=== PATIENT | female | born 1960 | race Caucasian/White ===

== ENCOUNTER 2016-09-16 10:30 | Inpatient (IN) | payer OTHER ==
[~2016-09-16] VITALS: Ht 157.5 cm; Wt 149.7 kg
[~2016-09-16 10:30] MED LIST: ALPRAZOLAM0.5 M3 PO; AMOXICILLIN500 M1 PO; ASPIR 8181 MG PO; ASPIRIN81 M4 PO; CATAPRES0.3 M1 PO; CEFDINIR300 MG PO; CLONIDINE HYDR0.3 MG PO; FISH OIL 1,2001 EAC2 PO; FISH OIL CONC1000 MG PO; FUROSEMIDE20 MG PO; LOSARTAN POTAS100 M1 PO; MEROPENEM1 GM IV; METAMUCIL CLEAR1 POW PO; METAMUCIL FIBE3.4 GM PO; MULTIPLE VITAM1 EAC2 PO; MULTIVITAMIN1 TA1 PO; PERCOCET 325 MG1 TA2 PO; POTASSIUM CITR10 ME1 PO; RED YEAST RICE600 M1 PO; VENTOLIN1 PUF INH; VERAPAMIL HCL360 M1 PO; VITAMIN C1000 M1 PO; VITAMIN C1000 M4 PO; VITAMIN D1000 IU PO; VITAMIN D31000 UNI2 PO; XANAX0.5 M1 PO
--- NOTE | 2016-09-16 10:34 | NUR ---
PT TO ED C/O RLE CELLULITIS. PT SAW JAYSON AUTUMN ARREOLAN AND WAS GIVEN PO ABX, PT HAS BEEN TAKING SINCE TUESDAY NIGHT. STATES PAIN IS WORSE AND THE CELLULITS IS NOT GETTING BETTER. TEMP 99.1 IN TRIAGE.
--- NOTE | 2016-09-16 11:37 | ED GENERAL ADULT ---
History of Present Illness General Chief Complaint: Lower Extremity Problems Stated Complaint: SENT BY PMD FOR RT LEG CELLULITIS Source: patient Exam Limitations: no limitations Vital Signs & Intake/Output Vital Signs & Intake/Output Vital Signs Date Time Temp Pulse Resp B/P B/P Pulse O2 O2 Flow FiO2 Mean Ox Delivery Rate 09/16 1410 98 Room Air 09/16 1241 97.1 95 18 146/65 99 09/16 1034 99.1 116 20 157/89 98 Room Air Allergies Coded Allergies: latex (Mild, RASH 09/16/16) WANDA Inhibitors (Intermediate, COUGH 09/16/16) Reconcile Medications Albuterol Sulfate (Proair Hfa) 90 MCG HFA.AER.AD 2 PUF INH Q4 PRN WHEEZING ( Reported) Alprazolam (Xanax) 0.5 MG TABLET 1 TAB PO DAILY NEEDED PRN ANXIETY ( Reported) Ascorbic Acid (Vitamin C) 1,000 MG TABLET 1 TAB PO DAILY VITAMIN SUPPORT ( Reported) Aspirin (Aspirin*) 81 MG TAB.CHEW 1 TAB PO DAILY HEART HEALTH (Reported) Cephalexin 500 MG CAPSULE 1 CAP PO Q6 ANTIBIOTIC, INFECTION (Reported) Cholecalciferol (Vitamin D3) 1,000 UNIT TABLET 1 TAB PO DAILY BONE STRENGTH ( Reported) Clonidine HCl (Catapres) 0.3 MG TABLET 1 TAB PO QPM HBP (Reported) Furosemide (Lasix) 20 MG TABLET 1 TAB PO DAILY WATER RETENTION (Reported) Losartan Potassium 100 MG TABLET 1 TAB PO DAILY BP (Reported) Multivitamin (Multiple Vitamins) 1 EACH TABLET 1 TAB PO DAILY VITAMIN SUPPORT (Reported) [place]-3S/Dha/Epa/Fish Oil (Fish Oil 1,200 MG Softgel) 360-1,200MG CAPSULE 2 CAP PO DAILY CHOLESTEROL (Reported) Potassium Citrate (Potassium Citrate ER) 10 MEQ (1,080 MG) TABLET.ER 1 TAB PO DAILY URIC ACID STONES (Reported) Psyllium Hydrophy Sugar Free (Metamucil Fiber Singles Packet) 3.4 GRAM POWD.PACK 1 TSP PO DAILY SUBTOTAL COLECTOMY (Reported) Red Yeast Rice 600 MG CAPSULE 2 CAP PO DAILY SUPPLEMENT (Reported) Sulfamethoxazole/Trimethoprim (Sulfamethoxazole-Tmp Ds Tablet) 800 MG-160 MG TABLET 1 TAB PO BID ANTIBIOTIC, INFECTION (Reported) Tramadol HCl 50 MG TABLET 1 TAB PO TIDPRN PRN PAIN (Reported) Verapamil HCl 360 MG CAP24H.PEL 1 CAP PO 2200 BP (Reported) Triage Note: PT TO ED C/O RLE CELLULITIS. PT SAW JAYSON LEYVA APRN AND WAS GIVEN PO ABX, PT HAS BEEN TAKING SINCE TUESDAY NIGHT. STATES PAIN IS WORSE AND THE CELLULITS IS NOT GETTING BETTER. TEMP 99.1 IN TRIAGE. Triage Nurses Notes Reviewed? yes HPI: Patient sent in for admission for cellulitis to her right lower extremity. Patient was seen in the office on Tuesday and was started on Keflex and Bactrim. 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 Patient is having low-grade fevers, increasing pain in spreading of the erythema. Patient was seen again today and then was sent in for admission. Patient denies any nausea or vomiting. Patient describes a burning throbbing pain in the area where there is redness. Patient states that there is no pain outside of the redness. Patient states the pain is worsened when anybody presses on the reddened area. She rates the pain at 5 out of 10. Past History Travel History Traveled to [place] past 21 day No Medical History Any Pertinent Medical History? see below for history Cardiovascular: hypertension Cancer(s): cervical cancer History of MRSA: No History of VRE: No History of CDIFF: No Influenza Vaccine: 12/07/13 Surgical History Surgical History: non-contributory Psychosocial History Who do you live with Patient/Self Services at Home None What is your primary language Icelandic Tobacco Use: Never used ETOH Use: denies use Illicit Drug Use: denies illicit drug use Family History Family History, If Any: MOTHER FH: hyperlipidemia FH: myocardial infarction FATHER FH: BPH (benign prostatic hypertrophy) FH: hyperlipidemia Hx Contributory? No Review of Systems Review of Systems Constitutional: Reports: see HPI, chills, fever. EENTM: Reports: no symptoms. Respiratory: Reports: no symptoms. Cardiovascular: Reports: no symptoms. GI: Reports: no symptoms. Genitourinary: Reports: no symptoms. Musculoskeletal: Reports: no symptoms. Skin: Reports: see HPI. Neurological/Psychological: Reports: no symptoms. Hematologic/Endocrine: Reports: no symptoms. Immunologic/Allergic: Reports: no symptoms. All Other Systems: Reviewed and Negative Physical Exam Physical Exam General Appearance: well developed/nourished, alert, awake, moderate distress Head: atraumatic, normal appearance Eyes: Bilateral: PERRL, EOMI. Ears, Nose, Throat: normal pharynx, normal ENT inspection, hearing grossly normal Neck: normal inspection, supple, full range of motion Respiratory: normal breath sounds, chest non-tender, no respiratory distress, lungs clear Cardiovascular: regular rate/rhythm, normal peripheral pulses Gastrointestinal: normal bowel sounds, soft, non-tender, no organomegaly Back: normal inspection, normal range of motion Extremities: pedal edema Neurologic/Psych: no motor/sensory deficits, awake, alert, oriented x 3, normal mood/affect Skin: ERYTHEMA Lymphatic: NO INGUINAL ADENOPATHY Core Measures ACS in differential dx? No CVA/TIA Diagnosis: No Severe Sepsis Present: No Septic Shock Present: No Progress Differential Diagnoses I considered the following diagnoses in my evaluation of the patient: [ CELLULITIS, FAILED OUT PT ABX, DVT] Plan of Care: Orders Procedure Date/time Status Regular Diet 09/16 D Active ED Holding Orders 09/16 1413 Active Admit to inpatient 09/16 141 Active Vital Signs 09/16 141 Active Code Status 09/16 1414 Active Patient Data 09/16 1407 Active EKG 09/16 1402 Active BLOOD CULTURE 09/16 113 Active COMPREHENSIVE METABOLIC PANEL 09/16 113 Complete CBC WITHOUT DIFFERENTIAL 09/16 1136 Complete Laboratory Tests 09/16/16 1300: Anion Gap 14, Estimated GFR 42 L, BUN/Creatinine Ratio 12.3, Glucose 87, Calcium 8.9, Total Bilirubin 0.5, AST 21, ALT 43, Alkaline Phosphatase 102, Total Protein 7.0, Albumin 4.1, Globulin 2.9, Albumin/Globulin Ratio 1.4, CBC w Diff MAN DIFF ORDERED, RBC 3.88 L, MCV 88.6, MCH 29.2, RDW 14.6 H, MPV 8.2, Gran % 79.2 H, Lymphocytes % 12.2 L, Monocytes % 7.6, Eosinophils % 0.7, Basophils % 0.3, Absolute Granulocytes 12.7 H, Segmented Neutrophils 80 H, Absolute Lymphocytes 2.0, Lymphocytes 13 L, Monocytes 5, Absolute Monocytes 1.2 H, Eosinophils 2, Absolute Eosinophils 0.1, Absolute Basophils 0.1, Platelet Estimate VERIFIED BY SMEAR, Normocytic RBCs VERIFIED, Normochromic RBCs VERIFIED , PUBS MCHC 33.0 Microbiology 09/16 1300 BLOOD: Blood Culture - RECD 09/16 1136 BLOOD: Blood Culture - ORD Diagnostic Imaging: Viewed by Me: Ultrasound. Discussed w/RAD: Ultrasound. Radiology Impression: PATIENT: LISETTE MÉNDEZ PRESENT AGE : 55 PATIENT ACCOUNT NO: [id number] : 58 LOCATION: [facility] ORDERING PHYSICIAN: DAO MOORE MD SERVICE DATE: 09/16/16-1136 EXAM TYPE: US - US-DUPLEX VENOUS EXTREM UNI EXAMINATION: US TRIPLEX LOWER EXTREMITY, RIGHT CLINICAL INFORMATION: Right lower extremity edema, swelling, inflammatory change and tenderness. COMPARISON: Ultrasound bilateral lower extremities dated 2013. Imaging significantly limited due to body habitus. TECHNIQUE: Color-flow triplex imaging with spectral analysis and compression Doppler were performed on the lower extremity. FINDINGS: Respiratory variation, normal compression and augmented flow are noted throughout the left lower extremity. The visualized common femoral vein, proximal greater saphenous vein, proximal and mid femoral vein, profunda femoral vein and the popliteal vein show no evidence of deep venous thrombosis. The distal right superficial femoral vein compresses incompletely secondary to body habitus but shows totally normal color-flow and augmentation, without definite thrombus seen. There is very poor visualization of the calf veins. There is no Hay's cyst. IMPRESSION: No definite ultrasound evidence of deep venous thrombosis involving the lower extremity. The examination is significantly limited secondary to body habitus, in particular within the distal right superficial femoral vein and calf veins. DICTATED BY: FRANCIS SABILLON MD DATE/TIME DICTATED:09/16/161319 FINISHED CIGAR MAKER:NUPUR DATE/TIME TRANSCRIBED:09/16/161319 CONFIDENTIAL, DO NOT COPY WITHOUT APPROPRIATE AUTHORIZATION. <Electronically signed in Other Vendor System> SIGNED BY: FRANCIS SABILLON MD 09/16/16 1342 Initial ED EKG: SR, NO STT CHANGES Departure Departure Disposition: STILL A PATIENT Condition: Guarded Clinical Impression Primary Impression: Cellulitis Qualifiers: Site of cellulitis: extremity Site of cellulitis of extremity: lower extremity Laterality: right Qualified Code: L03.115 - Cellulitis of right lower limb Referrals: AUTUMN JOYNER,THANG Song (PCP/Family) Departure Forms: Customer Survey General Discharge Information Admission Note Spoke With: BARBIE ENCARNACION MD Documentation of Exam: Documentation of any treatments & extenuating circumstances including Concerns Regarding Discharge (functional status, medication knowledge or non-compliance, living conditions, etc.) that warrant an admission rather than observation: [ Patient being admitted for saline is failed outpatient antibiotics. At this point she will need IV antibiotics. Follow-up cultures. She may need an ID consultation.] Critical Care Note Critical Care Note Critical Care Time: non-applicable
[2016-09-16 13:12] LABS: ABSOLUTE BASOPHIL COUNT 0.1 /CUMM (0.0-0.2); ABSOLUTE EOSINOPHIL COUNT 0.1 /CUMM (0.0-0.7); ABSOLUTE GRANULOCYTE CT 12.7 /CUMM (1.4-6.5); ABSOLUTE MONOCYTE COUNT 1.2 /CUMM (0.10-0.60); BASOPHIL % 0.3 % (0.0-2.0); EOSINOPHIL % 0.7 % (0-5); GRANULOCYTE % 79.2 % (42.2-75.2); HEMATOCRIT 34.4 % (37-47); MEAN CORPUSCULAR HGB 29.2 PG (27.0-31.0); MEAN CORPUSCULAR VOLUME 88.6 FL (81.0-99.0); MEAN PLATELET VOLUME 8.2 FL (7.4-10.4); PLATELET COUNT 351 /CUMM (130-400); RBC DISTRIBUTION WIDTH 14.6 % (11.5-14.5); RED BLOOD CELL CT 3.88 /CUMM (4.20-5.40); WHITE BLOOD CELL COUNT 16.1 /CUMM (4.8-10.8)
--- NOTE | 2016-09-16 13:13 | NUR ---
VERY DIFFICULT STICK.. ONLY ABLE TO OBTAIN ONE AEROBIC CULTURE. WALKED SPECIMEN TO LAB SPOKE WITH SHERI AND WAS INFORMED THEY WOULD ACCEPT. LABS DRAWN AND SENR LAV,YELLOW,BLUE,JAMES TOP.
--- NOTE | 2016-09-16 13:24 | NUR ---
PT DIFF STICK, PT REQUESTING TO DRINK WATER BEFORE THIS RN CAN ATTEMPT IV. PER PT "THEY USUALLY JUST GO FOR A CENTRAL LINE" PT PROVIDED WITH PITCHER OF WATER AND WILL ATTMPT IV AFTER PT DRINKS PER PT REQUEST
--- NOTE | 2016-09-16 13:42 | ULTRASOUND REPORT ---
EXAMINATION: US TRIPLEX LOWER EXTREMITY, RIGHT CLINICAL INFORMATION: Right lower extremity edema, swelling, inflammatory change and tenderness. COMPARISON: Ultrasound bilateral lower extremities dated 08/13/2013. Imaging significantly limited due to body habitus. TECHNIQUE: Color-flow triplex imaging with spectral analysis and compression Doppler were performed on the lower extremity. FINDINGS: Respiratory variation, normal compression and augmented flow are noted throughout the left lower extremity. The visualized common femoral vein, proximal greater saphenous vein, proximal and mid femoral vein, profunda femoral vein and the popliteal vein show no evidence of deep venous thrombosis. The distal right superficial femoral vein compresses incompletely secondary to body habitus but shows totally normal color-flow and augmentation, without definite thrombus seen. There is very poor visualization of the calf veins. There is no Hay's cyst. IMPRESSION: No definite ultrasound evidence of deep venous thrombosis involving the lower extremity. The examination is significantly limited secondary to body habitus, in particular within the distal right superficial femoral vein and calf veins.
[2016-09-16] MEDS ORDERED: CEPHALEXIN500 M3 PO (14:02)
[2016-09-16] MEDS ORDERED: PROAIR HFA8.5 GM INH (14:05)
--- NOTE | 2016-09-16 14:08 | NUR ---
IV EST BY JUAREZ Sanchez MED WITH TORADOL AND ROCEPHIN PER APR LUNCH ORDERED PER PT REQUEST, OK WITH PT DENIES NEEDING ANYTHING AT THIS TIME
--- NOTE | 2016-09-16 14:10 | NUR ---
ONLY 1 BOTTLE OF BC WERE DRAWN DUE TO PT BEING A VERY DIFFICULT STICK. MD MOORE AWARE OF SAME AND OK TO GIVE ROCEPHIN DESPITE THIS. NO NEED TO KEEP ATTEMPTING RE DRAWS PER MD. PT RECENTLY ON PO ANTIBIOTICS
--- NOTE | 2016-09-16 14:28 | NUR ---
LUNCH ORDERED PER PT REQUEST, OK WITH MD
--- NOTE | 2016-09-16 14:45 | NUR ---
HOUSE STAFF INTO EVAL
--- NOTE | 2016-09-16 15:06 | History & Physical ---
PRERNA ROCKWELL,ORAL 09/16/16 1506: General Information and HPI History of Present Illness: Ms. Nation is a 55-year-old female with past medical history significant for cervical cancer status post radical hysterectomy, diverticulitis status post subtotal colectomy, anxiety, hypertension, hyperlipidemia, and nephrolithiasis who presents with a 6 day history of fever, redness, and swelling in her right leg. She noticed on Tuesday she started developing low-grade fevers to 100.4. She then noticed on Tuesday morning that her right lower extremity was becoming red but was not swollen at the time. She does not remember any history of bites though she does work at a [employer] that is in the [employer]. This progressively worsened and on Tuesday afternoon she went to see Brandin Wolf, her PCP, who diagnosed her with cellulitis. He prescribed Keflex and Bactrim which she started Tuesday night. That night, she began experiencing increasing pain in the leg to 57/10. The next morning she contacted her PCP who increased her Lasix dose. That evening the pain persisted and she knew that she would have to come in the next morning. She endorses headache, lightheadedness, night sweats, seasonal allergies, shortness of breath that is worse on exertion and better at rest, and nausea. No chest pain. Allergies/Medications Allergies: Coded Allergies: latex (Mild, RASH 09/16/16) WANDA Inhibitors (Intermediate, COUGH 09/16/16) Home Med list Albuterol Sulfate (Proair Hfa) 90 MCG HFA.AER.AD 2 PUF INH Q4 PRN WHEEZING ( Reported) Alprazolam (Xanax) 0.5 MG TABLET 1 TAB PO DAILY NEEDED PRN ANXIETY ( Reported) Ascorbic Acid (Vitamin C) 1,000 MG TABLET 1 TAB PO DAILY VITAMIN SUPPORT ( Reported) Aspirin (Aspirin*) 81 MG TAB.CHEW 1 TAB PO DAILY HEART HEALTH (Reported) Cholecalciferol (Vitamin D3) 1,000 UNIT TABLET 1 TAB PO DAILY BONE STRENGTH ( Reported) Clonidine HCl (Catapres) 0.3 MG TABLET 1 TAB PO QPM HBP (Reported) Losartan Potassium 100 MG TABLET 1 TAB PO DAILY BP (Reported) Multivitamin (Multiple Vitamins) 1 EACH TABLET 1 TAB PO DAILY VITAMIN SUPPORT (Reported) [place]-3S/Dha/Epa/Fish Oil (Fish Oil 1,200 MG Softgel) 360-1,200MG CAPSULE 2 CAP PO DAILY CHOLESTEROL (Reported) Potassium Citrate (Potassium Citrate ER) 10 MEQ (1,080 MG) TABLET.ER 1 TAB PO DAILY URIC ACID STONES (Reported) Psyllium Hydrophy Sugar Free (Metamucil Fiber Singles Packet) 3.4 GRAM POWD.PACK 1 TSP PO DAILY SUBTOTAL COLECTOMY (Reported) Red Yeast Rice 600 MG CAPSULE 2 CAP PO DAILY SUPPLEMENT (Reported) Verapamil HCl 360 MG CAP24H.PEL 1 CAP PO 2200 BP (Reported) Past History Travel History Traveled to [place] past 21 day No Medical History Cardiovascular: hypertension, hyperlipidemia Respiratory: cold induced bronchospasm Gastrointestinal: diverticulitis Renal: nephrolithiasis Musculoskeletal: b/l knee replacement Psychiatric: anxiety Cancer(s): cervical cancer History of MRSA: No History of VRE: No History of CDIFF: No Influenza Vaccine: 12/07/13 Surgical History Surgical History: radical hysterectomy, subtotla colectomy Past Family/Social History Family History Relations & Conditions if any MOTHER FH: hyperlipidemia FH: myocardial infarction FATHER FH: BPH (benign prostatic hypertrophy) FH: hyperlipidemia Psychosocial History Services at Home: None ETOH Use: denies use Illicit Drug Use: denies illicit drug use Review of Systems Review of Systems Constitutional: Reports: see HPI. EENTM: Reports: no symptoms. Cardiovascular: Reports: no symptoms. Respiratory: Reports: see HPI. GI: Reports: see HPI. Genitourinary: Reports: no symptoms. Musculoskeletal: Reports: no symptoms. Skin: Reports: see HPI. Neurological/Psychological: Reports: no symptoms. Hematologic/Endocrine: Reports: no symptoms. Immunologic/Allergic: Reports: no symptoms. All Other Systems: Reviewed and Negative Exam & Diagnostic Data Last 24 Hrs of Vital Signs/I&O Vital Signs Date Time Temp Pulse Resp B/P B/P Pulse O2 O2 Flow FiO2 Mean Ox Delivery Rate 09/16 1410 98 Room Air 09/16 1241 97.1 95 18 146/65 99 09/16 1034 99.1 116 20 157/89 98 Room Air Intake & Output 09/16 1600 09/16 0800 09/16 0000 Intake Total Output Total Balance Patient 337 lb Weight Weight Reported by Patient Measurement Method Physical Exam General Appearance Alert, Oriented X3, Cooperative, No Acute Distress Skin Right lower extremity has large patch of erythema with no dishcarge or pus. It is warmer than L HEENT Atraumatic, PERRLA, EOMI, Mucous Membr. moist/pink Neck No thryomegaly Lymphatic Cervical nl Cardiovascular Regular Rate, systolic murmur Lungs Clear to Auscultation Abdomen Normal Bowel Sounds, Soft, No Tenderness Neurological Normal Speech, Strength at 5/5 X4 Ext Extremities Edematous Last 24 Hrs of Labs/Cody: Laboratory Tests 09/16/16 1300: Anion Gap 14, Estimated GFR 42 L, BUN/Creatinine Ratio 12.3, Glucose 87, Hemoglobin A1c 6.1 H, Calcium 8.9, Total Bilirubin 0.5, AST 21, ALT 43, Alkaline Phosphatase 102, Total Protein 7.0, Albumin 4.1, Globulin 2.9, Albumin/ Globulin Ratio 1.4, TSH Pending, Free T4 Pending, Thyroxine (T4) Pending, CBC w Diff MAN DIFF ORDERED, RBC 3.88 L, MCV 88.6, MCH 29.2, RDW 14.6 H, MPV 8.2, Gran % 79.2 H, Lymphocytes % 12.2 L, Monocytes % 7.6, Eosinophils % 0.7, Basophils % 0.3, Absolute Granulocytes 12.7 H, Segmented Neutrophils 80 H, Absolute Lymphocytes 2.0, Lymphocytes 13 L, Monocytes 5, Absolute Monocytes 1.2 H, Eosinophils 2, Absolute Eosinophils 0.1, Absolute Basophils 0.1, Platelet Estimate VERIFIED BY SMEAR, Normocytic RBCs VERIFIED, Normochromic RBCs VERIFIED , PUBS MCHC 33.0 Microbiology 09/16 1300 BLOOD: Blood Culture - RECD 09/16 1137 BLOOD: Blood Culture - ORD Assessment/Plan Assessment: Ms. Nation is a 55-year-old female with past medical history significant for morbid obesity, cervical cancer status post radical hysterectomy, diverticulitis status post subtotal colectomy, anxiety, hypertension, hyperlipidemia, and nephrolithiasis who presents with a 6 day history of fever, redness, and swelling in her right leg. On presentation to the emergency room, vital signs were T 99.1, HR 116, RR 20, BP 157/89, satting 98% on room air. Laboratory analysis was significant for a white blood cell count 16.1, hemoglobin 11.4, granulocytic predominance at 79.2% , creatinine 1.3, hemoglobin A1c 6.1. Blood cultures were obtained and extremity venous study showed no DVT but was limited by body habitus. She was started on ceftriaxone and given ketorolac for pain. She will be admitted to general medicine and treated for the following problems: 1. Cellulitis 2. Sepsis, 2/4 SIRS criteria (heart rate and leukocytosis) plus likely source in leg 3. Hypertension 4. Hyperlipidemia 5. Anxiety 6. Acute kidney injury #Cellulitis: She meets 2 out of 4 SIRS criteria and therefore this qualifies as sepsis with likely source in her leg. She does not remember being bitten by a tick or bug she does work in the [employer]. The redness that she has on her lower extremity has not typical for a tickborne illness. She did receive more than 24 hours of outpatient antibiotic therapy before presenting and therefore failed outpatient therapy. We will start her on IV antibiotics. -IV Unasyn -Pain control pathway -Daily CBCs #Acute kidney injury: On presentation creatinine was 1.3. This is likely prerenal in the setting of dehydration and sepsis. We will fluid resuscitate and monitor this. -Hold furosemide -Consider IV fluid hydration -Daily BMP #Chronic medical problems: Anxiety, hypertension, hyperlipidemia, vitamin D deficiency, history of subtotal colectomy, diabetes mellitus -Continue home medications: Metamucil, multivitamins, losartan, fish oil, cholecalciferol, aspirin, cervical acid, verapamil, clonidine, alprazolam -Monitor blood sugars, consider starting insulin if they are high DVT prophylaxis with heparin Full code As Ranked By This Provider Problem List: 1. Hypertension 2. Anxiety 3. GILBERTO (acute kidney injury) 4. Sepsis 5. Cellulitis Qualifiers Site of cellulitis: extremity Site of cellulitis of extremity: lower extremity Laterality: right Qualified Code: L03.115 - Cellulitis of right lower limb 6. Morbid obesity with BMI of 60.0-69.9, adult Core Measures/Miscellaneous Acute Coronary Syndrome ACS Diagnosis: No Cerebrovascular Accident CVA/TIA Diagnosis: No Congestive Heart Failure CHF Diagnosis: No VTE (View Protocol) VTE Risk Factors: Acute medical illness, Age > 40, Cancer/chemo/oth therapy, Obesity [facility] prophylaxis d/t: LE Edema No VTE Pharm Prophylaxis d/t: No contraindications VTE Diagnosis: No VTE Type: NONE VTE Confirmed by (Test): NONE Sepsis (View Protocol) Severe Sepsis Present: No Septic Shock Septic Shock Present: No Miscellaneous Documentation Attending Case Discussed With: ISHMAEL ROCKWELL,REBECA Monsalve Primary Care Physician: AUTUMN JOYNER,THANG Song Patient sees these Specialists None Level of Patient Care: General Medicine KOURTNEY AVILES 09/16/16 1522: Resident Review Statement Resident Statement: examined this patient, discussed with journalism internship, agreed with journalism internship, discussed with family, reviewed EMR data (avail), discussed with nursing , reviewed images Other Findings: Mrs. Nation is a 55-year-old lady with a PMH of anxiety, obesity, uric acid stones , stent placement, anxiety, hyperlipidemia, cervical cancer S/P radical hysterectomy, corticated diverticulitis S/P subtotal colectomy with reanastomosis, lower extremity edema presents with complaints of lower extremity swelling. Symptoms started this past Tuesday with subjective fevers, MAXIMUM TEMPERATURE 100.4 on Tuesday, redness of the right lower extremity localized below the right knee which was subsequently accompanied by pain and swelling. She followed up with her PCP/P when necessary on Tuesday and was started on Bactrim and Keflex which she took that evening and tramadol for pain. Reports that the pain has progressed since then mostly around the ankle. She does endorse intermittent subjective fevers during this time, occasional episodes of nausea. ROS: Fatigue, headache, nausea, loose stools (chronic. VS on admission: BP 157/89, HR 116, RR 20, SPO2 98% on RA, T 99.1 Pertinent physical exam findings: Alert, no acute distress. Lungs CTA BL. RRR, normal S1/S2. Normal bowel sounds with no tenderness to palpation. Significant bilateral lower extremity edema 3+, erythema diffusely spread over the right lower extremity below the knee, no evidence of weeping or blistering. Pertinent labs and an ABC 16.1, H&H 11.4/34.4, platelets 351K, sodium 140, potassium 4.4, chloride 101, bicarbonate 25, BUN/CR 16/1.3, glucose 87. Base creatinine 1.1 Problem list: 1. Cellulitis of right lower extremity 2. History of ESBL in urine and bacteremia (2013) sensitive to meropenem and Unasyn 3. Elevated creatinine 4. Lower extremity edema 5. Hypertension 6. Anxiety Plan: Full admission to general medicine for management of cellulitis of right lower extremity. History of ESBL bacteremia in 2013. We'll consider starting the patient on Unasyn 3 g IV Q6-8. We'll discuss with ID on utility of Unasyn versus meropenem. Follow up blood cultures Lower extremity elevation for edema support Previously on furosemide 20 mg Tuesday. We'll consider daily dosage during admission, close monitoring of renal function. Latest echocardiogram from October 2014 with normal LVEF, aortic sclerosis, mild TR, mild MR History of anxiety: We'll start her on Xanax 0.5 mg Q6PRN Continue with verapamil 360 mg, losartan 100 mg, clonidine 0.3 mg at bedtime Analgesia: Percocet 1 tab for mild pain, morphine 2 mg IV Q4PRN for severe pain Regular diet Full code REBECA QUIÑONES 09/16/16 1725: Attending MD Review Statement Attending Statement Attending MD Statement: examined this patient, discuss w/resident/PA/SLITTER CREASER SLOTTER HELPER, agreed w/resident/PA/SLITTER CREASER SLOTTER HELPER, reviewed EMR data (avail), discussed with nursing Attending Assessment/Plan: 55 yr female with pmh of morbid obesity, pre DM, HTN, HLD, Cervical ca s/p radical hysterectomy, Diverticulitis s/p colectomy, B/l TKA presented to the ER with c/c of RLE redness, pain and swelling which was getting worse over the last 2 days alongwith low grade fever. Pt was started on Tuesday on keflex and bactrim DS but it was not helping so decided to come to the ER today AM. Cellulitis RLE- will start on unasyn, leg elevation. repeat cbc in am. hold lasix for now. Pt got amoxicillin as prophylaxis before dental procedure in 2016 and 12/2015. d/w pt the care plan. Agree with the assessment and plan of the resident/ right of way man.
--- NOTE | 2016-09-16 15:16 | NUR ---
PT REFUSED SC HEPARIN. STATES "I WILL WALK AROUND". RYLEYTASARA NOLEN PAGED REGARDING SAME REDNESS TO RIGHT LOWER EXTREMITY MARKED BY HOUSE STAFF PT EATING AT THIS TIME WITH NO COMPLAINTS.
--- NOTE | 2016-09-16 15:28 | NUR ---
Emergency Dept [facility] Admit Note: To be admitted to [facility] by DR QUIÑONES with CELLULITIS as the diagnosis, to [facility] location. Nursing Manager Heart Failure and admitting notified 09/16/16 at 1404 PT WILL GO TO ROOM 201-1
--- NOTE | 2016-09-16 16:07 | NUR ---
PT C/O PAIN 09/30 AT THIS TIME, MEDICATED WITH MORPHINE PER ORDER
--- NOTE | 2016-09-16 16:20 | NUR ---
REPORT GIVEN TO NUBIA SANDOVALED
--- NOTE | 2016-09-16 16:33 | NUR ---
PT MEDICATED WITH POTASSIUM CITRATE PER APR. PT CONFIRMS THAT SHE TAKES THIS MED WITH HER BREAKFAST AND DINNER
--- NOTE | 2016-09-16 16:41 | NUR ---
PT TRANSPORTED TO FLOOR
[2016-09-16 17:10] VITALS: BP 140/78
--- NOTE | 2016-09-16 17:25 | Admission Certification ---
Admission Certification Certification Statement - As attending physician, I certify that at the time of - admission, based on clinical presentation, severity of - symptoms, need for further diagnostic testing and - therapeutic interventions, and risk of adverse outcomes - without in-hospital treatment, in my clinical assessment, - this patient requires an acute hospital stay for a minimum - of two nights or longer. I have also considered psychsocial - factors such as support system, advanced age, financial - issues, cognitive issues, and failed out-patient treatments, - past re-admission history, safety of patient, and lack of - compliance as applicable. Specific rationale supporting this admission is: cellulitis RLE
--- NOTE | 2016-09-16 17:40 | NUR ---
PT ARRIVED AT THIS TIME FROM ER A/O X 3 ON RA, LUNGS CLEAR, DENIES SOB, STATES SOB AT TIMES LATELY, LBM TODAY, ABD SOFT NONTENDER. REDNESS/WARM AND EDEMA TO RLE. +CMS, +PEDAL PULSES, NO OPEN AREAS NOTED. REDNESS IS OUTLINED FROM ER. IV TO LAC INTACT AND FLUSHES WITHOUT DIFFICULTY. ORIENTED TO ROOM AND CALL PALMER.
[2016-09-16 22:16] VITALS: BP 130/66
[2016-09-17 06:34] VITALS: BP 100/57
--- NOTE | 2016-09-17 07:51 | PN- Housestaff ---
See Addendum Subjective Follow-up For: cellulitis Subjective: No overnight events. She fought with the bed last night, had difficulty getting comfortable. Otherwise, she feels a little better today. She has 1-2/10 pain at rest in her leg, but that jumps to 8/10 when walking on it. Otherwise, no complaints. Review of Systems Constitutional: Reports: no symptoms. EENTM: Reports: no symptoms. Cardiovascular: Reports: no symptoms. Respiratory: Reports: no symptoms. Gastrointestinal: Reports: no symptoms. Genitourinary: Reports: no symptoms. Musculoskeletal: Reports: no symptoms. Skin: Reports: see HPI. Neurological/Psychological: Reports: no symptoms. Hematologic/Endocrine: Reports: no symptoms. Immunologic/Allergic: Reports: no symptoms. Objective Last 24 Hrs of Vital Signs/I&O Vital Signs Date Time Temp Pulse Resp B/P B/P Pulse O2 O2 Flow FiO2 Mean Ox Delivery Rate 09/17 0634 99.3 72 20 100/57 95 09/16 2216 99.9 90 20 130/66 95 09/167 134/70 09/167 134/70 09/16 1710 99.4 94 20 140/78 95 Room Air 09/16 1523 98.9 99 20 124/59 97 Room Air 09/16 1410 98 Room Air 09/16 1241 97.1 95 18 146/65 99 09/16 1034 99.1 116 20 157/89 98 Room Air Intake & Output 09/17 0800 09/17 0000 09/16 1600 Intake Total Output Total Balance Patient 330 lb 337 lb Weight Weight Reported by Patient Measurement Method Physical Exam General Appearance: Alert, Oriented X3, Cooperative, No Acute Distress Cardiovascular: Regular Rate, Normal S1, Normal S2 Lungs: Clear to Auscultation Abdomen: Normal Bowel Sounds, Soft, No Tenderness Extremities: Right lower extremity less erythematous than yesterday, receding slightrly from marker line. Still warm, no pus or discharge. Vascular: Pulses Symmetrical Current Medications: Current Medications Sig/Gilberto Start time Last Medication Dose Route Stop Time Status Admin Acetaminophen 650 MG Q6P PRN 09/16 1445 AC PO Alprazolam 0.5 MG Q6P PRN 09/16 1530 AC 09/16 PO 09/23 1529 2101 Ampicillin Sodium/ 3,000 MG Q6 09/16 1800 AC 09/17 Sulbactam Sodium IV 0544 Sodium Chloride 100 ML Ascorbic Acid 1,000 MG DAILY 09/17 1000 AC PO Aspirin 81 MG DAILY 09/17 1000 AC PO Ceftriaxone Sodium 0 .STK-MED ONE 09/16 1404 DC .ROUTE Ceftriaxone Sodium 1,000 MG ONCE ONE 09/16 1145 DC 09/16 IV 09/16 1146 1411 Cholecalciferol 1,000 IU DAILY 09/17 1000 AC PO Clonidine 0.3 MG AT BEDTIME 09/16 2200 AC 09/16 PO 2056 Fish Oil 2,100 MG DAILY 09/17 1000 AC PO Heparin Sodium 0 .STK-MED ONE 09/16 1510 DC (Porcine) .ROUTE Heparin Sodium 5,000 UNIT Q8 09/16 1431 AC (Porcine) SC Ketorolac 0 .STK-MED ONE 09/16 1404 DC Tromethamine .ROUTE Ketorolac 30 MG ONCE ONE 09/16 1145 DC 09/16 Tromethamine IV 09/16 1146 1412 Losartan Potassium 100 MG DAILY 09/17 1000 AC PO Morphine Sulfate 0 .STK-MED ONE 09/16 1607 DC .ROUTE Morphine Sulfate 2 MG Q4P PRN 09/16 1445 AC 09/16 IV 1606 Multivitamins 1 TAB DAILY 09/17 1000 AC Therapeutic PO Oxycodone/ 1 TAB Q6P PRN 09/16 1445 AC 09/17 Acetaminophen PO 0719 Potassium Citrate 10 MEQ DAILY 09/16 1500 AC 09/16 PO 1632 Psyllium Hydrophilic 1 PAC DAILY 09/17 1000 AC Mucilloid PO Verapamil HCl 360 MG AT BEDTIME 09/16 2200 AC 09/16 PO 2056 Last 24 Hrs of Lab/Cody Results Last 24 Hrs of Labs/Mics: Laboratory Tests 09/16/16 1300: Anion Gap 14, Estimated GFR 42 L, BUN/Creatinine Ratio 12.3, Glucose 87, Hemoglobin A1c 6.1 H, Calcium 8.9, Total Bilirubin 0.5, AST 21, ALT 43, Alkaline Phosphatase 102, Total Protein 7.0, Albumin 4.1, Globulin 2.9, Albumin/ Globulin Ratio 1.4, TSH 1.210, Free T4 1.45, Thyroxine (T4) 9.0, CBC w Diff MAN DIFF ORDERED, RBC 3.88 L, MCV 88.6, MCH 29.2, RDW 14.6 H, MPV 8.2, Gran % 79.2 H, Lymphocytes % 12.2 L, Monocytes % 7.6, Eosinophils % 0.7, Basophils % 0.3, Absolute Granulocytes 12.7 H, Segmented Neutrophils 80 H, Absolute Lymphocytes 2.0, Lymphocytes 13 L, Monocytes 5, Absolute Monocytes 1.2 H, Eosinophils 2, Absolute Eosinophils 0.1, Absolute Basophils 0.1, Platelet Estimate VERIFIED BY SMEAR, Normocytic RBCs VERIFIED, Normochromic RBCs VERIFIED, PUBS MCHC 33.0 Microbiology 09/16 1300 BLOOD: Blood Culture - RECD 09/16 1137 BLOOD: Blood Culture - CAN Cancelled: SPECIMEN NEVER RECEIVED Assessment/Plan Assessment: Ms. Nation is a 55-year-old female with past medical history significant for morbid obesity, cervical cancer status post radical hysterectomy, diverticulitis status post subtotal colectomy, anxiety, hypertension, hyperlipidemia, and nephrolithiasis who presents with a 6 day history of fever, redness, and swelling in her right leg. #Cellulitis with sepsis: She met 2 out of 4 SIRS criteria on admission and therefore this qualified as sepsis with likely source in her leg. She has improved even on less than 24 hours of IV antibiotics. We will continue current treatment. -IV Unasyn -Pain control pathway -Daily CBCs #Acute kidney injury: On presentation creatinine was 1.3. This is likely prerenal in the setting of dehydration and sepsis. -Hold furosemide -Consider IV fluid hydration -Daily BMP #Chronic medical problems: Anxiety, hypertension, hyperlipidemia, vitamin D deficiency, history of subtotal colectomy, diabetes mellitus -Continue home medications: Metamucil, multivitamins, losartan, fish oil, cholecalciferol, aspirin, cervical acid, verapamil, clonidine, alprazolam -Monitor blood sugars, consider starting insulin if they are high Problem List: 1. GILBERTO (acute kidney injury) 2. Sepsis 3. Morbid obesity with BMI of 60.0-69.9, adult 4. Cellulitis Pain Ratin Pain Location: R lower leg Pain Goal: Remain pain free Pain Plan: see a/p Tomorrow's Labs & Rationales: cbc
[2016-09-17 08:25] LABS: ABSOLUTE BASOPHIL COUNT 0 /CUMM (0.0-0.2); ABSOLUTE EOSINOPHIL COUNT 0.2 /CUMM (0.0-0.7); ABSOLUTE GRANULOCYTE CT 11.3 /CUMM (1.4-6.5); ABSOLUTE LYMPH COUNT 2.2 /CUMM (1.2-3.4); ABSOLUTE MONOCYTE COUNT 0.9 /CUMM (0.10-0.60); BASOPHIL % 0.2 % (0.0-2.0); EOSINOPHIL % 1.6 % (0-5); HEMATOCRIT 31.1 % (37-47); MEAN CORPUSCULAR HGB 29.3 PG (27.0-31.0); MEAN CORPUSCULAR HGB CONC 33.1 G/DL (33.0-37.0); MEAN CORPUSCULAR VOLUME 88.6 FL (81.0-99.0); PLATELET COUNT 311 /CUMM (130-400); RBC DISTRIBUTION WIDTH 15.4 % (11.5-14.5); RED BLOOD CELL CT 3.52 /CUMM (4.20-5.40); WHITE BLOOD CELL COUNT 14.7 /CUMM (4.8-10.8)
--- NOTE | 2016-09-17 14:31 | Discharge Summary ---
Visit Information Visit Dates Admission Date: 09/16/16 Discharge Date: 09/20/16 Hospital Course Course Attending Physician: ISHMAEL ROCKWELL,REBECA Monsalve Primary Care Physician: AUTUMN JOYNER,THANG Song Hospital Course: Ms. Nation is a 55-year-old female with past medical history significant for morbid obesity, cervical cancer status post radical hysterectomy, diverticulitis status post subtotal colectomy, anxiety, hypertension, hyperlipidemia, and nephrolithiasis who presented with a 6 day history of fever, redness, and swelling in her right leg. On presentation to the emergency room, vital signs were T 99.1, HR 116, RR 20, BP 157/89, satting 98% on room air. Laboratory analysis was significant for a white blood cell count 16.1, hemoglobin 11.4, granulocytic predominance at 79.2% , creatinine 1.3, hemoglobin A1c 6.1. Blood cultures were obtained and extremity venous study showed no DVT but was limited by body habitus. She was started on ceftriaxone and given ketorolac for pain. She was admitted to general medicine and treated for the following problems: 1. Cellulitis 2. Sepsis, 2/4 SIRS criteria (heart rate and leukocytosis) plus likely source in leg 3. Hypertension 4. Hyperlipidemia 5. Anxiety 6. Acute kidney injury #Cellulitis with sepsis: She met 2 out of 4 SIRS criteria on admission and therefore this qualified as sepsis with likely source in her leg. She was started on IV Unasyn and she improved both clinically and medically. She should continue with lala keflex for 6 more days. She should also follow up with Dr. Bosch in 1 week. #Acute kidney injury: On presentation creatinine was 1.3. This was likely a prerenal cause in the setting of dehydration and sepsis. We held her furosemide and her creatinine subsequently improved. #Chronic medical problems: Anxiety, hypertension, hyperlipidemia, vitamin D deficiency, history of subtotal colectomy, diabetes mellitus: The following medications were continued as follows: -Continue home medications: Metamucil, multivitamins, fish oil, cholecalciferol, aspirin, cervical acid, verapamil, clonidine, alprazolam. Losartan was initially held for GILBERTO but was subsequently restarted. Allergies: Coded Allergies: latex (Mild, RASH 09/16/16) WANDA Inhibitors (Intermediate, COUGH 09/16/16) Disposition Summary Disposition Principal Diagnosis: Cellulitis, sepsis Additional Diagnosis: Acute kidney injury, anxiety, hypertension, hyperlipidemia, vitamin D deficiency , diabetes mellitus, morbid obesity Discharge Disposition: home or self care Discharge Instructions General Discharge Information Code Status: Full Code Patient's Diet: Heart healthy, diabetic Patient's Activity: As tolerated Follow-Up Instructions/Appts: Please follow-up with your PCP in one week. Please take all medications as directed. Medications at Discharge Discharge Medications: Stop taking the following medications: Losartan Potassium (Losartan Potassium) 100 MG TABLET ORAL DAILY Tramadol HCl (Tramadol HCl) 50 MG TABLET ORAL THREE TIMES A DAY NEEDED as needed for PAIN Qty = 21 Sulfamethoxazole/Trimethoprim (Sulfamethoxazole-Tmp Ds Tablet) 800 MG-160 MG TABLET ORAL TWICE DAILY Qty = 20 Continue taking these medications: Verapamil HCl (Verapamil HCl) 360 MG CAP24H.PEL 1 Capsule ORAL 2200 Psyllium Hydrophy Sugar Free (Metamucil Fiber Singles Packet) 3.4 GRAM POWD.PACK 1 Teaspoonful ORAL DAILY Clonidine HCl (Catapres) 0.3 MG TABLET 1 Tablet ORAL Every night Furosemide (Lasix) 20 MG TABLET 1 Tablet ORAL M,W,F Aspirin (Aspirin*) 81 MG TAB.CHEW 1 Tablet ORAL DAILY Multivitamin (Multiple Vitamins) 1 EACH TABLET 1 Tablet ORAL DAILY Ascorbic Acid (Vitamin C) 1,000 MG TABLET 1 Tablet ORAL DAILY Cholecalciferol (Vitamin D3) 1,000 UNIT TABLET 1 Tablet ORAL DAILY Arlee-3S/Dha/Epa/Fish Oil (Fish Oil 1,200 MG Softgel) 360-1,200MG CAPSULE 2 Capsule ORAL DAILY Red Yeast Rice (Red Yeast Rice) 600 MG CAPSULE 2 Capsule ORAL DAILY Alprazolam (Xanax) 0.5 MG TABLET 1 Tablet ORAL DAILY NEEDED as needed for ANXIETY Potassium Citrate (Potassium Citrate ER) 10 MEQ (1,080 MG) TABLET.ER 1 Tablet ORAL DAILY Albuterol Sulfate (Proair Hfa) 90 MCG HFA.AER.AD 2 Puff Inhale through mouth Every 4 hours as needed for WHEEZING Losartan (Cozaar) 100 MG TABLET 1 Tablet ORAL DAILY Qty = 30 Cephalexin (Cephalexin) 500 MG CAPSULE 1 Capsule ORAL EVERY SIX HOURS Qty = 40 Instructions: Please take for 6 more days (until 09/26) This prescription has been renewed Copies To: AUTUMN JOYNER,THANG Song; FLASH ROCKWELL,DEBI Song; MARLENA ROCKWELL,PANCHO Tang
[2016-09-17 14:32] VITALS: BP 100/60
--- NOTE | 2016-09-17 16:44 | NUR ---
PATIENT QUESTIONING IVF, STATES SHE'S BEEN TRYING TO DRINK BUT HAS BEEN SLEEPING. I TOLD HER, HER BUN/CR WERE ELEVATED AND WE WERE DOING BLOOD WORK AT 1900 AND WILL DETERMINE NEEDS THEN. SHE WANTS TO WAIT UNTIL AFTER BLOOD WORK. INFORMED DR ORAL GRAFF, WHO SAID TO HOLD IVF. WILL F/U ONCE BLOOD WORK RESULTS ARE AVAILABLE.
--- NOTE | 2016-09-17 22:32 | NUR ---
PATIENT STATES SHE GET POTASSIUM CITRATE BID, HER MED REC STATES DAILY, ORDERED. SPOKE WITH DR MELENDREZ, STATED HER K LEVELS ARE OK, NO NEED TO GIVE A SECOND DOSE WHILE HERE.
[2016-09-17 23:14] VITALS: BP 133/69
[2016-09-18 06:55] VITALS: BP 129/66
--- NOTE | 2016-09-18 07:44 | PN- Housestaff ---
MARILEE ROCKWELL,RAFAELA 09/18/16 0744: Subjective Follow-up For: Cellulitis Subjective: Patient did not sleep well last night because she wasnt comfortable in the bed. Denies any leg pain when she is lying down but increases to 7/10 with walking. She also wants her potassium twice daily. Review of Systems Constitutional: Reports: no symptoms. EENTM: Reports: no symptoms. Cardiovascular: Reports: no symptoms. Respiratory: Reports: no symptoms. Gastrointestinal: Reports: no symptoms. Genitourinary: Reports: no symptoms. Musculoskeletal: Reports: no symptoms. Skin: Reports: see HPI. Neurological/Psychological: Reports: no symptoms. Hematologic/Endocrine: Reports: no symptoms. Immunologic/Allergic: Reports: no symptoms. Objective Last 24 Hrs of Vital Signs/I&O Vital Signs Date Time Temp Pulse Resp B/P B/P Pulse O2 O2 Flow FiO2 Mean Ox Delivery Rate 09/18 0655 97.9 101 20 129/66 96 Room Air 09/17 2314 98.3 90 20 133/69 98 Room Air 09/17 2206 89 133/69 09/17 2206 89 133/69 09/17 1643 99.6 09/17 1643 99.6 09/17 1532 100.3 09/17 1450 Room Air 09/17 1432 100.3 103 20 100/60 95 Room Air Intake & Output 09/18 1600 09/18 0800 09/18 0000 Intake Total 600 1500 Output Total Balance 600 1500 Intake, IV 200 Intake, Oral 400 1500 Physical Exam General Appearance: Alert, Oriented X3, Cooperative Neck: Supple, No JVD, No thryomegaly Cardiovascular: Regular Rate, Normal S1, Normal S2 Lungs: Clear to Auscultation, Normal Air Movement Abdomen: Normal Bowel Sounds, Soft, No Tenderness, No Hepatospenomegaly, No Masses Extremities: right lower extremity is warm and erythematous, erythema is receding from the marker line. Assessment/Plan Assessment: Ms. Nation is a 55-year-old female with past medical history significant for morbid obesity, cervical cancer status post radical hysterectomy, diverticulitis status post subtotal colectomy, anxiety, hypertension, hyperlipidemia, and nephrolithiasis who presents with a 6 day history of fever, redness, and swelling in her right leg. #Cellulitis with sepsis: She met 2 out of 4 SIRS criteria on admission and therefore this qualified as sepsis with likely source in her leg. She has improved even on less than 24 hours of IV antibiotics. We will continue current treatment. -IV Unasyn -Pain control pathway -Daily CBCs: Continues to have leukocytosis. trending down. #Acute kidney injury: On presentation creatinine was 1.3. This is likely prerenal in the setting of dehydration and sepsis. -Hold furosemide -Consider IV fluid hydration- pt refused. -Daily BMP: Cr is 1.2 today Hx of Nephrolithiasis: -Patient is on Potassium supplements at home twice daily, prescribed by her slip dumper to prevent kidney stones. #Chronic medical problems: Anxiety, hypertension, hyperlipidemia, vitamin D deficiency, history of subtotal colectomy, diabetes mellitus -Continue home medications: Metamucil, multivitamins, losartan, fish oil, cholecalciferol, aspirin, cervical acid, verapamil, clonidine, alprazolam -Monitor blood sugars, consider starting insulin if they are high Problem List: 1. Sepsis 2. Cellulitis 3. GILBERTO (acute kidney injury) 4. Morbid obesity with BMI of 50.0-59.9, adult Pain Ratin Pain Location: Right lower leg Pain Goal: Remain pain free Pain Plan: Pain pathway Tomorrow's Labs & Rationales: CBC(Cellulitis), BEP(GILBERTO) [facility] 09/18/16 1556: Attending MD Review Statement Attending Statement Attending MD Statement: examined this patient, discuss w/resident/PA/CONTROL OFFICER, agreed w/resident/PA/CONTROL OFFICER, reviewed EMR data (avail), discussed with nursing Attending Assessment/Plan: Ms. Nation was seen by me. Chart reviewed. Reports improvement in her LE swelling. Remains afebrile, WBC trending down. Cr also improved. Cont current plan of care. Rest of the plan as pre resident's note
[2016-09-18 08:25] LABS: ABSOLUTE BASOPHIL COUNT 0 /CUMM (0.0-0.2); ABSOLUTE EOSINOPHIL COUNT 0.3 /CUMM (0.0-0.7); ABSOLUTE GRANULOCYTE CT 9.9 /CUMM (1.4-6.5); ABSOLUTE LYMPH COUNT 1.9 /CUMM (1.2-3.4); ABSOLUTE MONOCYTE COUNT 0.8 /CUMM (0.10-0.60); BASOPHIL % 0.2 % (0.0-2.0); EOSINOPHIL % 2.4 % (0-5); HEMATOCRIT 29.3 % (37-47); MEAN CORPUSCULAR HGB 29.3 PG (27.0-31.0); MEAN CORPUSCULAR HGB CONC 32.9 G/DL (33.0-37.0); MEAN CORPUSCULAR VOLUME 89.1 FL (81.0-99.0); MEAN PLATELET VOLUME 8.4 FL (7.4-10.4); PLATELET COUNT 326 /CUMM (130-400); RBC DISTRIBUTION WIDTH 15.1 % (11.5-14.5); RED BLOOD CELL CT 3.29 /CUMM (4.20-5.40); WHITE BLOOD CELL COUNT 12.9 /CUMM (4.8-10.8)
[2016-09-18 14:35] VITALS: BP 141/77
[2016-09-18 22:30] VITALS: BP 153/77
[2016-09-19 06:36] VITALS: BP 114/52
--- NOTE | 2016-09-19 08:16 | PN- Housestaff ---
MARILEE ROCKWELL,RAFAELA 09/19/16 0816: Subjective Follow-up For: Cellulitis Subjective: Patient feels better today. Still complains of leg pain with walking. Denies any fever, chills, shortness of breath or overnight events. Patient wanted to know why her losartan was stopped. Review of Systems Constitutional: Reports: no symptoms. EENTM: Reports: no symptoms. Cardiovascular: Reports: no symptoms. Respiratory: Reports: no symptoms. Gastrointestinal: Reports: no symptoms. Genitourinary: Reports: no symptoms. Musculoskeletal: Reports: no symptoms. Skin: Reports: see HPI. Neurological/Psychological: Reports: no symptoms. Hematologic/Endocrine: Reports: no symptoms. Immunologic/Allergic: Reports: no symptoms. Objective Last 24 Hrs of Vital Signs/I&O Vital Signs Date Time Temp Pulse Resp B/P B/P Pulse O2 O2 Flow FiO2 Mean Ox Delivery Rate 09/19 0636 97.9 77 20 114/52 92 Room Air 09/18 2232 104 153/77 09/18 2231 104 153/77 09/18 2230 98.7 104 153/77 94 09/18 1435 98.8 90 20 141/77 93 Room Air Intake & Output 09/19 1600 09/19 0800 09/19 0000 Intake Total 1020 Output Total Balance 1020 Intake, IV 220 Intake, Oral 800 Physical Exam General Appearance: Alert, Oriented X3, Cooperative Other Physical Findings: Neck: Supple, No JVD, No thryomegaly Cardiovascular: Regular Rate, Normal S1, Normal S2 Lungs: Clear to Auscultation, Normal Air Movement Abdomen: Normal Bowel Sounds, Soft, No Tenderness, No Hepatospenomegaly, No Masses Extremities: right lower extremity is warm and erythematous, erythema is receding from the marker line, with some scratch sneed. Assessment/Plan Assessment: Ms. Nation is a 55-year-old female with past medical history significant for morbid obesity, cervical cancer status post radical hysterectomy, diverticulitis status post subtotal colectomy, anxiety, hypertension, hyperlipidemia, and nephrolithiasis who presents with a 6 day history of fever, redness, and swelling in her right leg. #Cellulitis with sepsis: She met 2 out of 4 SIRS criteria on admission and therefore this qualified as sepsis with likely source in her leg. She has improved even on less than 24 hours of IV antibiotics. We will continue current treatment. -IV Unasyn -Pain control pathway -Daily CBCs: Continues to have leukocytosis. trending down. #Acute kidney injury: On presentation creatinine was 1.3. This is likely prerenal in the setting of dehydration and sepsis. -Hold furosemide -Consider IV fluid hydration- pt refused. -Daily BMP: Cr is within normal range today. Started on losartan 50 mg today, will increase to home dose tomorrow. Hx of Nephrolithiasis: -Patient is on Potassium supplements at home twice daily, prescribed by her server software engineer to prevent kidney stones. #Chronic medical problems: Anxiety, hypertension, hyperlipidemia, vitamin D deficiency, history of subtotal colectomy, diabetes mellitus -Continue home medications: Metamucil, multivitamins, losartan, fish oil, cholecalciferol, aspirin, cervical acid, verapamil, clonidine, alprazolam -Monitor blood sugars, consider starting insulin if they are high Problem List: 1. Sepsis 2. Cellulitis 3. Morbid obesity with BMI of 60.0-69.9, adult 4. GILBERTO (acute kidney injury) Pain Ratin Pain Location: Right lower extremity Pain Goal: Remain pain free Pain Plan: Pain pathway Tomorrow's Labs & Rationales: None NATY ROCKWELL,AMIR 09/19/16 1337: Attending MD Review Statement Attending Statement Attending MD Statement: examined this patient, discuss w/resident/PA/GUARDIAN FAMILY MEMBER, agreed w/resident/PA/GUARDIAN FAMILY MEMBER, reviewed EMR data (avail), discussed with nursing Attending Assessment/Plan: Pt was seen and evalauted. Reports sl improvement in her leg swelling and pain. WBC still elevated. Cont IV abx. Plan to switch to PO in am and potential d/c in next 24 hrs.
[2016-09-19 09:04] LABS: ABSOLUTE BASOPHIL COUNT 0 /CUMM (0.0-0.2); ABSOLUTE EOSINOPHIL COUNT 0.4 /CUMM (0.0-0.7); ABSOLUTE GRANULOCYTE CT 8.2 /CUMM (1.4-6.5); ABSOLUTE LYMPH COUNT 1.6 /CUMM (1.2-3.4); ABSOLUTE MONOCYTE COUNT 0.9 /CUMM (0.10-0.60); BASOPHIL % 0.2 % (0.0-2.0); EOSINOPHIL % 3.8 % (0-5); GRANULOCYTE % 73.5 % (42.2-75.2); HEMATOCRIT 28.7 % (37-47); MEAN CORPUSCULAR HGB 29.2 PG (27.0-31.0); MEAN CORPUSCULAR HGB CONC 33.2 G/DL (33.0-37.0); MEAN CORPUSCULAR VOLUME 88.1 FL (81.0-99.0); MEAN PLATELET VOLUME 8.2 FL (7.4-10.4); PLATELET COUNT 373 /CUMM (130-400); RBC DISTRIBUTION WIDTH 15.1 % (11.5-14.5); RED BLOOD CELL CT 3.26 /CUMM (4.20-5.40); WHITE BLOOD CELL COUNT 11.1 /CUMM (4.8-10.8)
--- NOTE | 2016-09-19 10:53 | Patient Discharge Instructions ---
Discharge Instructions General Discharge Information You were seen/treated for: Cellulitis Acute kidney injury Watch for these problems: Fever, worsening leg pain or erythema Special Instructions: Please follow-up with your PCP within a week after discharge. Please follow up with Dr. Bosch in 1 week. Please take all medications as directed. Diet Continue normal diet: Yes Recommended Diet: Heart Healthy Activity Full Activity/No Limits: Yes Acute Coronary Syndrome Inclusion Criteria At DC or during hospital stay patient has or had the following: ACS DIAGNOSIS No Discharge Core Measures Meds if any: Prescribed or Continued at Discharge Meds if any: NOT Prescribed or Continued at Discharge Congestive Heart Failure Inclusion Criteria At DC or during hospital stay patient has or had the following: CHF DIAGNOSIS No Discharge Core Measures Meds if any: Prescribed or Continued at Discharge Meds if any: NOT Prescribed or Continued at Discharge Cerebrovascular accident Inclusion Criteria At DC or during hospital stay patient has or had the following: CVA/TIA Diagnosis No Discharge Core Measures Meds if any: Prescribed or Continued at Discharge Meds if any: NOT Prescribed or Continued at Discharge Venous thromboembolism Inclusion Criteria VTE Diagnosis No VTE Type NONE VTE Confirmed by (Test) NONE Discharge Core Measures - Per Current guidelines, there needs to be overlap - treatment for the first 5 days of Warfarin therapy. - If discharged on Warfarin prior to 5 days of - overlap therapy, the patient will need to be - assessed for post discharge needs including - *Post discharge parental anticoagulation - *Warfarin and/or parental anticoagulation education - *Follow up date to check INR post discharge At least 5 days overlap therapy as Inpatient No Meds if any: Prescribed or Continued at Discharge Note: Overlap Therapy is Warfarin and Anticoagulant Meds if any: NOT Prescribed or Continued at Discharge
[2016-09-19 14:42] VITALS: BP 143/75
[2016-09-19 22:00] VITALS: BP 192/90
[2016-09-20 06:42] VITALS: BP 129/64
--- NOTE | 2016-09-20 07:06 | PN- Housestaff ---
See Addendum Subjective Follow-up For: Meghna Subjective: No overnight events. She slept poorly, had some nightmares last night she thinks from the [place]. She feels like her leg is getting better but she still has 5/ 10 pain. She is wondering what she can do to prevent this from happening again.No other complaints. Review of Systems Constitutional: Reports: no symptoms. EENTM: Reports: no symptoms. Cardiovascular: Reports: no symptoms. Respiratory: Reports: no symptoms. Gastrointestinal: Reports: no symptoms. Genitourinary: Reports: no symptoms. Musculoskeletal: Reports: no symptoms. Skin: Reports: see HPI. Neurological/Psychological: Reports: no symptoms. Hematologic/Endocrine: Reports: no symptoms. Immunologic/Allergic: Reports: no symptoms. Objective Last 24 Hrs of Vital Signs/I&O Vital Signs Date Time Temp Pulse Resp B/P B/P Pulse O2 O2 Flow FiO2 Mean Ox Delivery Rate 09/20 0642 98.0 72 20 129/64 92 Room Air 09/19 2200 99.5 95 21 192/90 96 Room Air 09/19 2109 95 192/90 09/19 2109 95 192/90 09/19 1712 90 140/80 09/19 1442 98.6 96 16 143/75 98 Room Air Intake & Output 09/20 0800 09/20 0000 09/19 1600 Intake Total 616 862 8185 Output Total 500 3250 Balance 200 450 -1850 Intake, IV 200 200 100 Intake, Oral 750 1300 Number 0 Bowel Movements Output, Urine 500 3250 Physical Exam General Appearance: Alert, Oriented X3, Cooperative, No Acute Distress Cardiovascular: Regular Rate, Normal S1, Normal S2 Lungs: Clear to Auscultation Abdomen: Normal Bowel Sounds, Soft, No Tenderness Extremities: Right lower extremity without erythema or warmth, bilateral edema. Some exoriations on right LE. Current Medications: Current Medications Sig/Gilberto Start time Last Medication Dose Route Stop Time Status Admin Acetaminophen 650 MG Q6P PRN 09/16 1445 AC 09/17 PO 1532 Alprazolam 0.5 MG Q6P PRN 09/16 1530 AC 09/20 PO 09/23 1529 0107 Ampicillin Sodium/ 3,000 MG Q6 09/16 1800 AC 09/20 Sulbactam Sodium IV 0528 Sodium Chloride 100 ML Ascorbic Acid 1,000 MG DAILY 09/17 1000 AC 09/19 PO 0842 Aspirin 81 MG DAILY 09/17 1000 AC 09/19 PO 0842 Cholecalciferol 1,000 IU DAILY 09/17 1000 AC 09/19 PO 0842 Clonidine 0.3 MG AT BEDTIME 09/16 2200 AC 09/19 PO 2109 Fish Oil 2,100 MG DAILY 09/17 1000 AC 09/19 PO 0842 Heparin Sodium 5,000 UNIT Q8 09/16 1431 AC (Porcine) SC Losartan Potassium 50 MG DAILY 09/19 1334 AC 09/19 PO 1712 Morphine Sulfate 2 MG Q4P PRN 09/16 1445 AC 09/16 IV 1606 Multivitamins 1 TAB DAILY 09/17 1000 AC 09/19 Therapeutic PO 0842 Oxycodone/ 1 TAB Q6P PRN 09/16 1445 AC 09/20 Acetaminophen PO 0529 Potassium Citrate 10 MEQ 0800,1700 09/18 1700 AC 09/19 PO 1712 Psyllium Hydrophilic 1 PAC 1200 09/17 1200 AC 09/19 Mucilloid PO 1210 Verapamil HCl 360 MG AT BEDTIME 09/18 2200 AC 09/19 PO 210 Assessment/Plan Assessment: Ms. Nation is a 55-year-old female with past medical history significant for morbid obesity, cervical cancer status post radical hysterectomy, diverticulitis status post subtotal colectomy, anxiety, hypertension, hyperlipidemia, and nephrolithiasis who presents with a 6 day history of fever, redness, and swelling in her right leg. #Cellulitis with sepsis: She met 2 out of 4 SIRS criteria on admission and therefore this qualified as sepsis with likely source in her leg. Blood cultures have remained negative. She has continued to improve over the weekend on Unasyn IV. Leukocytosis is downtrending. She may be able to go home today. -IV Unasyn. Consider switching to by mouth Augmentin -Pain control pathway -Daily CBCs: Continues to have leukocytosis. trending down. #Acute kidney injury: On presentation creatinine was 1.3. This was likely prerenal in the setting of dehydration and sepsis. It is since normalized to 1.0. -Consider restarting furosemide -Daily BMP Hx of Nephrolithiasis: -Patient is on Potassium supplements at home twice daily, prescribed by her tooth cutter spur to prevent kidney stones. #Chronic medical problems: Anxiety, hypertension, hyperlipidemia, vitamin D deficiency, history of subtotal colectomy, diabetes mellitus -Continue home medications: Metamucil, multivitamins, losartan, fish oil, cholecalciferol, aspirin, cervical acid, verapamil, clonidine, alprazolam -Monitor blood sugars, consider starting insulin if they are high -Was holding losartan, now 50 mg by mouth daily. Will consider increasing to full dose today. Problem List: 1. Morbid obesity with BMI of 60.0-69.9, adult 2. Cellulitis 3. Hypertension Pain Ratin Pain Location: leg Pain Goal: Remain pain free Pain Plan: see a/p Tomorrow's Labs & Rationales: discharge today
[2016-09-20 09:33] LABS: ABSOLUTE BASOPHIL COUNT 0 /CUMM (0.0-0.2); ABSOLUTE EOSINOPHIL COUNT 0.5 /CUMM (0.0-0.7); ABSOLUTE GRANULOCYTE CT 8.6 /CUMM (1.4-6.5); ABSOLUTE LYMPH COUNT 1.5 /CUMM (1.2-3.4); ABSOLUTE MONOCYTE COUNT 0.6 /CUMM (0.10-0.60); BASOPHIL % 0.3 % (0.0-2.0); EOSINOPHIL % 4.4 % (0-5); HEMATOCRIT 31.8 % (37-47); MEAN CORPUSCULAR HGB 28.9 PG (27.0-31.0); MEAN CORPUSCULAR HGB CONC 32.8 G/DL (33.0-37.0); MEAN CORPUSCULAR VOLUME 88.1 FL (81.0-99.0); MEAN PLATELET VOLUME 7.5 FL (7.4-10.4); PLATELET COUNT 425 /CUMM (130-400); RBC DISTRIBUTION WIDTH 14.7 % (11.5-14.5); RED BLOOD CELL CT 3.61 /CUMM (4.20-5.40); WHITE BLOOD CELL COUNT 11.1 /CUMM (4.8-10.8)
[2016-09-20] MEDS ORDERED: LASIX20 M1 PO (11:17)
[2016-09-20] MEDS ORDERED: CEPHALEXIN500 M3 PO (11:19)
[2016-09-20] MEDS ORDERED: COZAAR50 M1 PO ×2 (11:19→11:22)
--- NOTE | 2016-09-20 12:21 | Cons- Cardiology ---
General Information and HPI Consulting Request Date of Consult: 09/20/16 Requested By: REBECA QUIÑONES MD Reason for Consult: Hypertension History of Present Illness: The patient is a 55-year-old female with history of hypertension, hyperlipidemia, and prior left ventricular dysfunction on echocardiogram in 2013 which has apparently normalized since then. She presented with fever in combination with erythema and swelling in her right lower extremity. She was found to have evidence of cellulitis, and was admitted for IV antibiotic therapy. She was noted to have abnormal renal function suggestive of acute on chronic kidney injury in the setting of volume depletion and sepsis. Lasix was held. Losartan was initially held and then was restarted at 50 milligrams, which is a reduction in dose from her usual 100 milligrams daily. The cellulitis is improving. She denies any recent cardiac symptoms. No chest pain. No shortness of breath. No palpitations. No diaphoresis. Renal function has normalized. Allergies/Medications Allergies: Coded Allergies: latex (Mild, RASH 09/16/16) WANDA Inhibitors (Intermediate, COUGH 09/16/16) Home Med List: Albuterol Sulfate (Proair Hfa) 90 MCG HFA.AER.AD 2 PUF INH Q4 PRN WHEEZING ( Reported) Alprazolam (Xanax) 0.5 MG TABLET 1 TAB PO DAILY NEEDED PRN ANXIETY ( Reported) Ascorbic Acid (Vitamin C) 1,000 MG TABLET 1 TAB PO DAILY VITAMIN SUPPORT ( Reported) Aspirin (Aspirin*) 81 MG TAB.CHEW 1 TAB PO DAILY HEART HEALTH (Reported) Cephalexin 500 MG CAPSULE 1 CAP PO Q6 ANTIBIOTIC, INFECTION Please take for 6 more days (until 09/26) Cholecalciferol (Vitamin D3) 1,000 UNIT TABLET 1 TAB PO DAILY BONE STRENGTH ( Reported) Clonidine HCl (Catapres) 0.3 MG TABLET 1 TAB PO QPM HBP (Reported) Furosemide (Lasix) 20 MG TABLET 1 TAB PO M,W,F WATER RETENTION (Reported) Losartan Potassium (Cozaar) 50 MG TABLET 1 TAB PO DAILY Hypertension . Multivitamin (Multiple Vitamins) 1 EACH TABLET 1 TAB PO DAILY VITAMIN SUPPORT (Reported) [place]-3S/Dha/Epa/Fish Oil (Fish Oil 1,200 MG Softgel) 360-1,200MG CAPSULE 2 CAP PO DAILY CHOLESTEROL (Reported) Potassium Citrate (Potassium Citrate ER) 10 MEQ (1,080 MG) TABLET.ER 1 TAB PO DAILY URIC ACID STONES (Reported) Psyllium Hydrophy Sugar Free (Metamucil Fiber Singles Packet) 3.4 GRAM POWD.PACK 1 TSP PO DAILY SUBTOTAL COLECTOMY (Reported) Red Yeast Rice 600 MG CAPSULE 2 CAP PO DAILY SUPPLEMENT (Reported) Verapamil HCl 360 MG CAP24H.PEL 1 CAP PO 2200 BP (Reported) Current Medications: Current Medications Sig/Gilberto Start time Last Medication Dose Route Stop Time Status Admin Acetaminophen 650 MG Q6P PRN 09/16 1445 AC 09/17 PO 1532 Alprazolam 0.5 MG Q6P PRN 09/16 1530 AC 09/20 PO 09/23 1529 0107 Ampicillin Sodium/ 3,000 MG Q6 09/16 1800 AC 09/20 Sulbactam Sodium IV 1212 Sodium Chloride 100 ML Ascorbic Acid 1,000 MG DAILY 09/17 1000 AC 09/20 PO 1005 Aspirin 81 MG DAILY 09/17 1000 AC 09/20 PO 1005 Cholecalciferol 1,000 IU DAILY 09/17 1000 AC 09/20 PO 1005 Clonidine 0.3 MG AT BEDTIME 09/16 2200 AC 09/19 PO 2109 Fish Oil 2,100 MG DAILY 09/17 1000 AC 09/20 PO 1005 Heparin Sodium 5,000 UNIT Q8 09/16 1431 AC (Porcine) SC Losartan Potassium 50 MG DAILY 09/19 1334 AC 09/20 PO 1005 Morphine Sulfate 2 MG Q4P PRN 09/16 1445 AC 09/16 IV 1606 Multivitamins 1 TAB DAILY 09/17 1000 AC 09/20 Therapeutic PO 1005 Oxycodone/ 1 TAB Q6P PRN 09/16 1445 AC 09/20 Acetaminophen PO 1348 Potassium Citrate 10 MEQ 0800,1700 09/18 1700 AC 09/20 PO 0741 Psyllium Hydrophilic 1 PAC 1200 09/17 1200 AC 09/20 Mucilloid PO 1212 Verapamil HCl 360 MG AT BEDTIME 09/18 2200 AC 09/19 PO 2109 Review of Systems Review of Systems: No rash. No tremor. No melena. No palpitations. All other systems are reviewed and are noted to be negative. 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 Home Services at Home: None Smoking Status: Never Smoked ETOH Use: denies use Illicit Drug Use: denies illicit drug use Exam & Diagnostic Data Vital Signs and I&O Vital Signs Date Time Temp Pulse Resp B/P B/P Pulse O2 O2 Flow FiO2 Mean Ox Delivery Rate 09/20 1529 98.0 93 18 161/85 97 Room Air 09/20 1005 87 153/80 09/20 0642 98.0 72 20 129/64 92 Room Air 09/19 2200 99.5 95 21 192/90 96 Room Air 09/19 2109 95 192/90 09/19 2109 95 192/90 09/19 1712 90 140/80 Intake & Output 09/20 1600 09/20 0800 09/20 0000 09/19 1600 09/19 0800 09/19 0000 Intake Total 852 387 5971 1020 Output Total 500 3250 Balance 200 450 -1850 1020 Intake, IV 200 200 100 220 Intake, Oral 750 1300 800 Number 1 0 Bowel Movements Output, Urine 500 3250 Physical Exam: Gen: The patient is in no acute distress HEENT: Normal nose, ears, and oropharynx. Pupils equal bilaterally. Conjunctiva normal. Neck: Supple with no JVD, no masses, and no thyromegaly Lungs: Clear to auscultation with normal respiratory effort Heart: RRR, S1, S2, no murmurs. No peripheral edema, 2+ pulses in the lower extremities bilaterally Abdomen: Soft, nontender, no masses. No hepatomegaly. No splenomegaly Extremities: No clubbing or cyanosis. Normal muscle strength in the upper and lower extremities. Skin: Normal skin turgor with no skin ulcers or lesions noted. Neuro: Cranial nerves intact. Sensation intact Psych: Alert and oriented 3 with appropriate affect Labs/Cody Results: Laboratory Tests 09/20 09/19 0900 0637 Chemistry Sodium (137 - 145 mmol/L) 137 136 L Potassium (3.5 - 5.1 mmol/L) 4.9 4.5 Chloride (98 - 107 mmol/L) 97 L 99 Carbon Dioxide (22 - 30 mmol/L) 29 26 Anion Gap (5 - 16) 11 11 BUN (7 - 17 mg/dL) 13 13 Creatinine (0.5 - 1.0 mg/dL) 1.0 1.0 Estimated GFR (>60 ml/min) 57 L 57 L BUN/Creatinine Ratio (7 - 25 %) 13.0 13.0 Hematology CBC w Diff NO MAN DIFF REQ NO MAN DIFF REQ WBC (4.8 - 10.8 /CUMM) 11.1 H 11.1 H RBC (4.20 - 5.40 /CUMM) 3.61 L 3.26 L Hgb (12.0 - 16.0 G/DL) 10.4 L 9.5 L Hct (37 - 47 %) 31.8 L 28.7 L MCV (81.0 - 99.0 FL) 88.1 88.1 MCH (27.0 - 31.0 PG) 28.9 29.2 RDW (11.5 - 14.5 %) 14.7 H 15.1 H Plt Count (130 - 400 /CUMM) 425 H 373 MPV (7.4 - 10.4 FL) 7.5 8.2 Gran % (42.2 - 75.2 %) 77.0 H 73.5 Lymphocytes % (20.5 - 51.1 %) 13.1 L 14.7 L Monocytes % (1.7 - 9.3 %) 5.2 7.8 Eosinophils % (0 - 5 %) 4.4 3.8 Basophils % (0.0 - 2.0 %) 0.3 0.2 Absolute Granulocytes (1.4 - 6.5 /CUMM) 8.6 H 8.2 H Absolute Lymphocytes (1.2 - 3.4 /CUMM) 1.5 1.6 Absolute Monocytes (0.10 - 0.60 /CUMM) 0.6 0.9 H Absolute Eosinophils (0.0 - 0.7 /CUMM) 0.5 0.4 Absolute Basophils (0.0 - 0.2 /CUMM) 0 0 PUBS MCHC (33.0 - 37.0 G/DL) 32.8 L 33.2 Diagnostic Data EKG Results EKG tracing is independently reviewed, and reveals NSR at 97, IVCD, borderline inferior Q wave. Other Results Lower extremity venous Doppler study: No definite ultrasound evidence of deep venous thrombosis involving the lower extremity. The examination is significantly limited secondary to body habitus, in particular within the distal right superficial femoral vein and calf veins. Assessment/Plan Assessment/Plan Assessment: 1. Hypertension, not fully controlled 2. Cellulitis 3. Acute kidney injury, improved 4. History of mildly decreased left ventricular ejection fraction, which has improved. Plan: * Given the uncontrolled hypertension, and the complete recovery of renal function, I recommend resuming her usual losartan dose which is 100 milligrams daily. * I recommend keeping off diuretics for now given recent volume depletion and acute kidney injury * Follow up with Dr. Burk 1 week after discharge. Consult Acknowledgment - Thank you for your consult request.
--- NOTE | 2016-09-20 13:02 | Cons- Wound Care ---
General Information and HPI Consulting Request Date of Consult: 09/20/16 Requested By: REBECA QUIÑONES MD Reason for Consult: Cellulitis of the right leg History of Present Illness: Patient is 55-year-old with history of lymphedema status post cervical cancer diverticulitis status post surgery was admitted after having failed outpatient antibiotics for fever and erythema of the right leg. She presented with a white count of 16,000 which has improved on Unasyn. She reported having had periodic use of her leg and had been scratching with numerous breaks in the skin she's had no open ulcers. Allergies/Medications Allergies: Coded Allergies: latex (Mild, RASH 09/16/16) WANDA Inhibitors (Intermediate, COUGH 09/16/16) Home Med List: Albuterol Sulfate (Proair Hfa) 90 MCG HFA.AER.AD 2 PUF INH Q4 PRN WHEEZING ( Reported) Alprazolam (Xanax) 0.5 MG TABLET 1 TAB PO DAILY NEEDED PRN ANXIETY ( Reported) Ascorbic Acid (Vitamin C) 1,000 MG TABLET 1 TAB PO DAILY VITAMIN SUPPORT ( Reported) Aspirin (Aspirin*) 81 MG TAB.CHEW 1 TAB PO DAILY HEART HEALTH (Reported) Cephalexin 500 MG CAPSULE 1 CAP PO Q6 ANTIBIOTIC, INFECTION Please take for 6 more days (until 09/26) Cholecalciferol (Vitamin D3) 1,000 UNIT TABLET 1 TAB PO DAILY BONE STRENGTH ( Reported) Clonidine HCl (Catapres) 0.3 MG TABLET 1 TAB PO QPM HBP (Reported) Furosemide (Lasix) 20 MG TABLET 1 TAB PO M,W,F WATER RETENTION (Reported) Losartan Potassium (Cozaar) 50 MG TABLET 1 TAB PO DAILY Hypertension . Multivitamin (Multiple Vitamins) 1 EACH TABLET 1 TAB PO DAILY VITAMIN SUPPORT (Reported) [place]-3S/Dha/Epa/Fish Oil (Fish Oil 1,200 MG Softgel) 360-1,200MG CAPSULE 2 CAP PO DAILY CHOLESTEROL (Reported) Potassium Citrate (Potassium Citrate ER) 10 MEQ (1,080 MG) TABLET.ER 1 TAB PO DAILY URIC ACID STONES (Reported) Psyllium Hydrophy Sugar Free (Metamucil Fiber Singles Packet) 3.4 GRAM POWD.PACK 1 TSP PO DAILY SUBTOTAL COLECTOMY (Reported) Red Yeast Rice 600 MG CAPSULE 2 CAP PO DAILY SUPPLEMENT (Reported) Verapamil HCl 360 MG CAP24H.PEL 1 CAP PO 2200 BP (Reported) Review of Systems Review of Systems: Noncontributory for claudication Past History Travel History Traveled to [place] past 21 day No Medical History Blood Transfusion Hx: Yes Neurological: NONE EENT: NONE Cardiovascular: hypertension, hyperlipidemia Respiratory: cold induced bronchospasm Gastrointestinal: diverticulitis Hepatic: NONE Renal: nephrolithiasis Musculoskeletal: b/l knee replacement Psychiatric: anxiety Endocrine: NONE Blood Disorders: NONE 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 Home Services at Home: None Smoking Status: Never Smoked ETOH Use: denies use Illicit Drug Use: denies illicit drug use Exam & Diagnostic Data Vital Signs and I&O Vital Signs Result Date Time B/P 153/80 09/20 1005 Pulse 87 09/20 1005 Pulse Ox 92 09/20 0642 O2 Delivery Room Air 09/20 0642 Temp 98.0 09/20 0642 Resp 20 09/20 0642 Intake & Output 09/20 0000 09/19 1600 09/19 0800 Intake Total 950 1400 1020 Output Total 500 3250 Balance 450 -1850 1020 Intake, IV 200 100 220 Intake, Oral 750 1300 800 Number 0 Bowel Movements Output, Urine 500 3250 Exam of the right leg shows that the cells pedis pulse to be strongly palpable there is faint erythema there and numerous excoriations present. Over the anterior leg is a approximately quarter-sized area of erythema with central fluctuance and possible slight clearing. It is no drainage. Assessment/Plan Impression/Plan: 55-year-old woman with history of lymphedema admitted with soft tissue skin infection leukocytosis improved on antibiotics. There is a small area of fluctuance over the anterior leg which raises concern of possible abscess formation versus possible tickborne lesion. Recommendation is made for surgical evaluation for possible drainage and Dr. Bosch is been contacted. Recommend leg elevation and further evaluation after decision regarding possible I&D Consult Acknowledgment - Thank you for your consult request.
--- NOTE | 2016-09-20 14:39 | NUR ---
ALERT AND ORIENTED X 3. ON ROOM AIR. DENIES SHORTNESS OF BREATH VITAL SIGNS STABLE. DENIES CHEST PAIN. + PULSES. DENIES NUMBNESS/TINGLING RLE REDNESS. +2 EDEMA TO BLE. STEADY GAIT. NO DISTRESS NOTED WILL CONTINUE TO MONITOR
[2016-09-20 15:29] VITALS: BP 161/85
[2016-09-20] MEDS ORDERED: COZAAR100 M1 PO (16:04)
--- NOTE | 2016-09-20 17:56 | Cons- General Surgery ---
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 Admitted for cellulitis. Improved after iv abx and leg elevation. mild pain in leg. Allergies/Medications Allergies: Coded Allergies: latex (Mild, RASH 09/16/16) WANDA Inhibitors (Intermediate, COUGH 09/16/16) Home Med List: Albuterol Sulfate (Proair Hfa) 90 MCG HFA.AER.AD 2 PUF INH Q4 PRN WHEEZING ( Reported) Alprazolam (Xanax) 0.5 MG TABLET 1 TAB PO DAILY NEEDED PRN ANXIETY ( Reported) Ascorbic Acid (Vitamin C) 1,000 MG TABLET 1 TAB PO DAILY VITAMIN SUPPORT ( Reported) Aspirin (Aspirin*) 81 MG TAB.CHEW 1 TAB PO DAILY HEART HEALTH (Reported) Cephalexin 500 MG CAPSULE 1 CAP PO Q6 ANTIBIOTIC, INFECTION Please take for 6 more days (until 09/26) Cholecalciferol (Vitamin D3) 1,000 UNIT TABLET 1 TAB PO DAILY BONE STRENGTH ( Reported) Clonidine HCl (Catapres) 0.3 MG TABLET 1 TAB PO QPM HBP (Reported) Furosemide (Lasix) 20 MG TABLET 1 TAB PO M,W,F WATER RETENTION (Reported) Losartan (Cozaar) 100 MG TABLET 1 TAB PO DAILY HTN (Reported) Multivitamin (Multiple Vitamins) 1 EACH TABLET 1 TAB PO DAILY VITAMIN SUPPORT (Reported) [place]-3S/Dha/Epa/Fish Oil (Fish Oil 1,200 MG Softgel) 360-1,200MG CAPSULE 2 CAP PO DAILY CHOLESTEROL (Reported) Potassium Citrate (Potassium Citrate ER) 10 MEQ (1,080 MG) TABLET.ER 1 TAB PO DAILY URIC ACID STONES (Reported) Psyllium Hydrophy Sugar Free (Metamucil Fiber Singles Packet) 3.4 GRAM POWD.PACK 1 TSP PO DAILY SUBTOTAL COLECTOMY (Reported) Red Yeast Rice 600 MG CAPSULE 2 CAP PO DAILY SUPPLEMENT (Reported) Verapamil HCl 360 MG CAP24H.PEL 1 CAP PO 2200 BP (Reported) Current Medications: Current Medications Sig/Gilberto Start time Last Medication Dose Route Stop Time Status Admin Acetaminophen 650 MG Q6P PRN 09/16 1445 AC 09/17 PO 1532 Alprazolam 0.5 MG Q6P PRN 09/16 1530 AC 09/20 PO 09/23 1529 0107 Ampicillin Sodium/ 3,000 MG Q6 09/16 1800 AC 09/20 Sulbactam Sodium IV 1212 Sodium Chloride 100 ML Ascorbic Acid 1,000 MG DAILY 09/17 1000 AC 09/20 PO 1005 Aspirin 81 MG DAILY 09/17 1000 AC 09/20 PO 1005 Cholecalciferol 1,000 IU DAILY 09/17 1000 AC 09/20 PO 1005 Clonidine 0.3 MG AT BEDTIME 09/16 2200 AC 09/19 PO 2109 Fish Oil 2,100 MG DAILY 09/17 1000 AC 09/20 PO 1005 Heparin Sodium 5,000 UNIT Q8 09/16 1431 AC (Porcine) SC Losartan Potassium 50 MG DAILY 09/19 1334 AC 09/20 PO 1005 Morphine Sulfate 2 MG Q4P PRN 09/16 1445 AC 09/16 IV 1606 Multivitamins 1 TAB DAILY 09/17 1000 AC 09/20 Therapeutic PO 1005 Oxycodone/ 1 TAB Q6P PRN 09/16 1445 AC 09/20 Acetaminophen PO 1348 Potassium Citrate 10 MEQ 0800,1700 09/18 1700 AC 09/20 PO 1643 Psyllium Hydrophilic 1 PAC 1200 09/17 1200 AC 09/20 Mucilloid PO 1212 Verapamil HCl 360 MG AT BEDTIME 09/18 2200 AC 09/19 PO 2109 Past History Medical History Blood Transfusion Hx: Yes Neurological: NONE EENT: NONE Cardiovascular: hypertension, hyperlipidemia Respiratory: cold induced bronchospasm Gastrointestinal: diverticulitis Hepatic: NONE Renal: nephrolithiasis Musculoskeletal: b/l knee replacement Psychiatric: anxiety Endocrine: obesity Blood Disorders: NONE 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 Home Services at Home: None Smoking Status: Never Smoked ETOH Use: denies use Illicit Drug Use: denies illicit drug use Review of Systems Review of Systems: swelling redness and pain in leg. no f/c/s. no dyspnea. no cp, remainder 10pts neg. Exam & Diagnostic Data Vital Signs and I&O Vital Signs Date Time Temp Pulse Resp B/P B/P Pulse O2 O2 Flow FiO2 Mean Ox Delivery Rate 09/20 1529 98.0 93 18 161/85 97 Room Air 09/20 1005 87 153/80 09/20 0642 98.0 72 20 129/64 92 Room Air 09/19 2200 99.5 95 21 192/90 96 Room Air 09/19 2109 95 192/90 09/19 2109 95 19290 Intake & Output 09/20 1600 09/20 0800 09/20 0000 09/19 1600 09/19 0800 09/19 0000 Intake Total 583 832 0506 1020 Output Total 500 3250 Balance 200 450 -1850 1020 Intake, IV 200 200 100 220 Intake, Oral 750 1300 800 Number 1 0 Bowel Movements Output, Urine 500 3250 Physical Exam: gen; morbidly obese. nad. looks age. heent; anicteric, perrl, eomi leg, right. trace erythema lower leg circumferential. more lateral over area of excoriation. anteriorly there is a well circumscribed area of redness. no induration. ?fluctuance Last 24 Hours of Labs: Laboratory Tests 09/20 0900 Chemistry Sodium (137 - 145 mmol/L) 137 Potassium (3.5 - 5.1 mmol/L) 4.9 Chloride (98 - 107 mmol/L) 97 L Carbon Dioxide (22 - 30 mmol/L) 29 Anion Gap (5 - 16) 11 BUN (7 - 17 mg/dL) 13 Creatinine (0.5 - 1.0 mg/dL) 1.0 Estimated GFR (>60 ml/min) 57 L BUN/Creatinine Ratio (7 - 25 %) 13.0 Hematology CBC w Diff NO MAN DIFF REQ WBC (4.8 - 10.8 /CUMM) 11.1 H RBC (4.20 - 5.40 /CUMM) 3.61 L Hgb (12.0 - 16.0 G/DL) 10.4 L Hct (37 - 47 %) 31.8 L MCV (81.0 - 99.0 FL) 88.1 MCH (27.0 - 31.0 PG) 28.9 RDW (11.5 - 14.5 %) 14.7 H Plt Count (130 - 400 /CUMM) 425 H MPV (7.4 - 10.4 FL) 7.5 Gran % (42.2 - 75.2 %) 77.0 H Lymphocytes % (20.5 - 51.1 %) 13.1 L Monocytes % (1.7 - 9.3 %) 5.2 Eosinophils % (0 - 5 %) 4.4 Basophils % (0.0 - 2.0 %) 0.3 Absolute Granulocytes (1.4 - 6.5 /CUMM) 8.6 H Absolute Lymphocytes (1.2 - 3.4 /CUMM) 1.5 Absolute Monocytes (0.10 - 0.60 /CUMM) 0.6 Absolute Eosinophils (0.0 - 0.7 /CUMM) 0.5 Absolute Basophils (0.0 - 0.2 /CUMM) 0 PUBS MCHC (33.0 - 37.0 G/DL) 32.8 L Assessment/Plan Assessment/Plan Improved cellulitis. Area of anterior leg does not have typical appearance of abscess. It may represent an area of trauma. No incision and drainage recommended. Continue abx. f/u with me as outpatient. Consult Acknowledgment - Thank you for your consult request.
[2016-09-20] MEDS ORDERED: TRAMADOL HCL50 M1 PO (19:05)
[2016-09-20] MEDS ORDERED: SULFAMETHOXAZO1 EAC1 PO (19:05)
--- NOTE | 2016-09-20 19:55 | NUR ---
PATIENT IS DISCHARGE TO HOME AFTER ADMITTED FOR RIGHT LOWER EXTREMITY CELLULITIS. PATIENT GIVEN DISCHARGE INSTRUCTIONS AND WAS NOT ORDER ANY PAIN MEDICATION. PATIENT WAS TAKING TRAMADOL AT HOME WHICH WAS DISCONTINUED ON HER DISCHARGE INSTRUCTIONS. PATIENT REQUIRES PAIN MEDS FOR RIGHT LOWER EXTREMITY PAIN. CALLED AND SPOKE TO DIRECTOR CUSTOMER MIMI WHO SAID TO LET VANDANA KNOW IT IS OK TO CONTINUE WITH TRAMADOL AT HOME FOR HER PAIN. PATIENT WAS TOLD TO DO SAME.
== END 2016-09-20 20:04 | DRG 872 ==
LOC: ERH 10:30 → 2NB 14:14 → ERHI 14:14 → EDBEDREQ 14:27 → ENRESERV 15:16 → ENTRNSPT 16:21 → CMPTRNSPT 16:34 → 2NB 16:43 → ENPENDDIS 09-20 17:24 → 2NB 09-20 20:04
PROVIDERS: Emergency Medicine; Internal Medicine; ADMIT Internal Medicine
DX: A41.9 Sepsis, unspecified organism (principal); N17.9 Acute kidney failure, unspecified; L03.115 Cellulitis of right lower limb; E11.22 Type 2 diabetes mellitus with diabetic chronic kidney disease; Z68.44 Body mass index [BMI] 60.0-69.9, adult; N18.3 Chronic kidney disease, stage 3 (moderate); E66.01 Morbid (severe) obesity due to excess calories; F41.9 Anxiety disorder, unspecified; E78.5 Hyperlipidemia, unspecified; E55.9 Vitamin D deficiency, unspecified; I12.9 Hypertensive chronic kidney disease with stage 1 through stage 4 chronic kidney disease, or unspecified chronic kidney disease; Z85.41 Personal history of malignant neoplasm of cervix uteri
CPT/HCPCS: 2NBP; 84133; 84300; 36415; 81001; 82436; 82570; 87040; 93005; 93010; 96374; 96375; J0696; J1644; J1885; J3490